=== PATIENT | female | born 2000 | race Two or more races ===

== ENCOUNTER 2023-08-16 06:30 | Emergency (ER) | payer OTHER ==
[~2023-08-16] VITALS: Ht 167.6 cm; Wt 68.0 kg
[2023-08-16 08:02] LABS: HEMATOCRIT 38.9 % (36.0-45.00); HEMOGLOBIN 13.2 g/dL (12.0-15.00); MEAN CELL VOLUME 83.7 fL (80.00-100.00); MEAN CORPUSCULAR HEMOGLOBIN 28.5 pg (27.00-32.0); PLATELET COUNT 183 K/uL (150-450); RED BLOOD COUNT 4.64 M/uL (4.00-6.00); RED CELL DISTRIBUTION WIDTH 13.8 % (11.5-14.5)
[2023-08-16 08:22] LABS: INR 1.14; PARTIAL THROMBOPLASTIN TIME 26.7 SECONDS (22.0-34.0); PROTHROMBIN TIME 11.9 SECONDS (9.0-11.5)
[2023-08-16 08:31] LABS: ANION GAP 10 (10.0-20.0); BLOOD UREA NITROGEN 18 mg/dL (7-18); BUN CREA RATIO 16 (7.0-25.0); CALCIUM 9.5 mg/dL (8.5-10.1); CARBON DIOXIDE 25 mEq/L (21-32); CHLORIDE 108 mmol/L (98-107); GFR 61.55; GLUCOSE FASTING 95 mg/dL (65-100); OSMOLALITY SERUM 279 MOSM/KG (275-295); POTASSIUM 3.89 mEq/L (3.5-5.1); SODIUM 139 mmol/L (136-145)
[2023-08-16 08:46] LABS: HCG QUANTITATIVE < 1 mUI/mL (1-3)
[2023-08-16 11:29] LABS: PH,URINE 5.5 (5.0-8.0); URINE APPEARANCE Clear; URINE BILIRRUBIN Negative (NEGATIVE); URINE BLOOD Moderate; URINE COLOR Yellow; URINE GLUCOSE Negative (NEGATIVE); URINE LEUKOCYTE Trace; URINE NITRATE Negative; URINE PROTEIN Negative (NEGATIVE); URINE UROBILINOGEN 0.2 E.U./dl
[2023-08-16 11:33] LABS: URINE BACTERIA 13.8 uL (0.0-1933); URINE EPITHELIAL CELLS 18.7 uL (0.0-38.8); URINE RBC 49.1 uL (0.0-20.8); URINE WBC 11.5 uL (0.0-23.2)
== END 2023-08-16 13:40 | disposition home or self-care (01) ==
LOC: ER 06:30
PROVIDERS: General Practice
DX: N83.201 Unspecified ovarian cyst, right side (principal); R10.2 Pelvic and perineal pain

== ENCOUNTER 2023-08-18 21:33 | Emergency (ER) | payer OTHER ==
[~2023-08-18] VITALS: Ht 167.6 cm; Wt 66.7 kg
[2023-08-18 23:28] LABS: HEMATOCRIT 32.3 % (36.0-45.00); HEMOGLOBIN 10.5 g/dL (12.0-15.00); MEAN CORPUSCULAR HEMOGLOBIN 27.7 pg (27.00-32.0); MEAN CORPUSCULAR HGB CONC 32.5 g/dl (32.0-36.0); PLATELET COUNT 150 K/uL (150-450); RED CELL DISTRIBUTION WIDTH 13.4 % (11.5-14.5)
[2023-08-19 00:02] LABS: CALCIUM 8.5 mg/dL (8.5-10.1); CREATININE SERUM 0.98 mg/dL (0.55-1.02); GFR 70.33; POTASSIUM 3.83 mEq/L (3.5-5.1)
[2023-08-19 04:09] LABS: PH,URINE 5.5 (5.0-8.0); URINE APPEARANCE Clear; URINE BILIRRUBIN Negative (NEGATIVE); URINE BLOOD Moderate; URINE COLOR Yellow; URINE GLUCOSE Negative (NEGATIVE); URINE LEUKOCYTE Small; URINE NITRATE Negative; URINE PROTEIN 30 (NEGATIVE)
[2023-08-19 04:12] LABS: URINE BACTERIA 100.7 uL (0.0-1933); URINE RBC 74.7 uL (0.0-20.8); URINE WBC 208.3 uL (0.0-23.2)
[2023-08-19 05:54] LABS: URINE MUCUS MODERATE
== END 2023-08-19 07:42 | disposition home or self-care (01) ==
LOC: ER 21:33
PROVIDERS: General Practice
DX: N83.201 Unspecified ovarian cyst, right side (principal)